=== PATIENT | female | born 1950 | race Caucasian/White ===

== ENCOUNTER 2017-05-29 05:46 | Inpatient (IN) | payer OTHER ==
[2017-05-29] MEDS ORDERED: METOPROLOL 5 MG INJ (07:00)
[2017-05-29] MEDS ORDERED: ROCURONIUM 50 MG INJ ×4 (07:34→17:53)
[2017-05-29] MEDS ORDERED: PROPOFOL 20 ML (07:34)
[2017-05-29] MEDS ORDERED: MIDAZOLAM 1 MG/ML 2 ML INJ (08:01)
[2017-05-29] MEDS ORDERED: ONDANSETRON 4 MG INJ (08:02)
[2017-05-29] MEDS ORDERED: PHENYLephrine (100 MCG/ML) 5ML SYG (08:02)
[2017-05-29] MEDS ORDERED: HYDROmorphONE 2 MG/ML SYG (08:33)
[2017-05-29] MEDS ORDERED: EPHEDrine SULFATE 50 MG/5 ML SYG (08:49)
[2017-05-29] MEDS ORDERED: DEXAMETHASONE 4 MG/ML 1 ML INJ (08:49)
[2017-05-29] MEDS ORDERED: ACETAMINOPHEN 1000MG/100ML IV 100 ML (08:49)
[2017-05-29] MEDS ORDERED: ROPIVACAINE 0.2% 20 ML VIAL (09:13)
[2017-05-29] MEDS: BUPIVACAINE 0.5%/EPI (SDV) 30 ML INJ (09:38)
[2017-05-29] MEDS ORDERED: NALOXONE (0.4 MG/ML) INJ IV ×2 (10:30→19:00)
[2017-05-29] MEDS ORDERED: PIPER-TAZO 3.375 GM IV (PMX) 100 ML (14:20)
[2017-05-29] MEDS ORDERED: MEPERIDINE 100 MG INJ (15:47)
[2017-05-29] MEDS ORDERED: ONDANSETRON 4 MG INJ IV ×2 (16:00→19:00)
[2017-05-29] MEDS ORDERED: MEPERIDINE 25 MG INJ IV (16:00)
[2017-05-29] MEDS ORDERED: LABETALOL HCL 20MG INJ IV ×2 (16:00→19:00)
[2017-05-29] MEDS ORDERED: HYDROmorphONE (0.2 MG/ML) 10ML SYG IV ×3 (16:00)
[2017-05-29] MEDS ORDERED: EPHEDrine SULFATE 50 MG/5 ML SYG IV (16:00)
[2017-05-29] MEDS ORDERED: DIPHENHYDRAMINE 50 MG INJ IV ×2 (16:00→19:00)
[2017-05-29] MEDS ORDERED: hydrALAzine 20 MG INJ IV ×2 (16:00→19:00)
[2017-05-29] MEDS ORDERED: FUROSEMIDE 20 MG INJ (16:47)
[2017-05-29] MEDS ORDERED: NEOSTIGMINE 3 MG/3 ML SYRINGE (17:53)
[2017-05-29] MEDS ORDERED: GLYCOPYRROLATE 0.4 MG INJ (17:53)
[2017-05-29] MEDS ORDERED: BISACODYL 10 MG SUPP PR (19:00)
[2017-05-29] MEDS ORDERED: METOCLOPRAMIDE 10 MG INJ IV (19:00)
[2017-05-29] MEDS ORDERED: HYDROmorphONE 0.5 MG/0.5 ML SYG IV ×5 (19:00)
[2017-05-29] MEDS ORDERED: HYDROCODONE/APAP (5/325) TAB PO ×2 (19:00)
[2017-05-29] MEDS ORDERED: HYDROmorphONE 1 MG/ML SYG IV ×3 (19:00)
[2017-05-29] MEDS ORDERED: NA PHOSPHATE/BIPHOS 133 ML ENEMA PR (19:00)
[2017-05-29] MEDS: PIPER-TAZO 3.375 GM IV (PMX) 100 ML IVPB (19:14)
[2017-05-29] MEDS: FENTAnyl 2MCG/ML-ROPIV 0.2% 100 ML BAG EPI (19:14)
[2017-05-29 20:18] LABS: ADD MAN DIFF? NO
[2017-05-29] MEDS: HYDROmorphONE 0.2 MG/ML PCA IV (20:29)
[2017-05-29 20:40] LABS: WHITE BLOOD COUNT 11.5 10^3/ul (4.8-10.8)
[2017-05-29 20:40] LABS: BASOPHILS % 0.2 % (0.0-2.0); HEMATOCRIT 34.1 % (37.0-47.0); HEMOGLOBIN 11.3 g/dl (12.0-16.0); LYMPHOCYTES # 0.7 10^3/ul (0.8-2.9); MEAN CORPUSCULAR HEMOGLOBIN 30.8 pg (29.0-33.0); MEAN CORPUSCULAR HGB CONC 33.1 g/dl (32.0-37.0); MEAN CORPUSCULAR VOLUME 92.9 fl (82.0-101.0); MEAN PLATELET VOLUME 9.1 fl (7.4-10.4); MONOCYTE # 0.6 10^3/ul (0.3-0.9); MONOCYTES % 5.1 % (0.0-11.0); NEUTROPHIL # 10.2 10^3/ul (1.6-7.5); NEUTROPHILS % 88.4 % (39.0-77.0); PLATELET COUNT 187 10^3/UL (140-415); RED BLOOD COUNT 3.67 10^6/ul (4.20-5.40); RED CELL DISTRIBUTION WIDTH 13.2 % (11.5-14.5)
[2017-05-29 20:43] LABS: ALANINE AMINOTRANSFERASE 65 IU/L (13-69); ALBUMIN 2.9 g/dl (3.3-4.9); ALBUMIN/GLOBULIN RATIO 0.93; ALKALINE PHOSPHATASE 67 IU/L (42-121); ANION GAP 10 (8-16); ASPARTATE AMINO TRANSFERASE 66 IU/L (15-46); BILIRUBIN,INDIRECT 0.3 mg/dl (0-1.1); BILIRUBIN,TOTAL 0.3 mg/dl (0.2-1.3); BLOOD UREA NITROGEN 22 mg/dl (7-20); CARBON DIOXIDE 23 mmol/L (21-31); CHLORIDE 111 mmol/L (97-110); CREATININE 1.74 mg/dl (0.44-1.00); GLUCOSE 212 mg/dl (70-220); MAGNESIUM 1.4 mg/dl (1.7-2.5); POTASSIUM 4.7 mmol/L (3.5-5.1); SODIUM 139 mmol/L (135-144)
[2017-05-29 20:43] LABS: PHOSPHORUS 4.3 mg/dl (2.5-4.9)
[2017-05-29] MEDS: D5W-0.45 NACL + KCL 20 MEQ 1,000 ML IV ×2 (20:44→21:39)
[2017-05-29 20:50] LABS: INR 1.02; PROTIME 13.5 Sec (11.9-14.9); PT RATIO 1.1
[2017-05-29 20:51] LABS: PARTIAL THROMBOPLASTIN TIME 32.1 Sec (25.0-35.0)
[2017-05-29] MEDS ORDERED: GLUCOSE GEL 15 GRAM TUBE BUCCAL (21:30)
[2017-05-29] MEDS ORDERED: DEXTROSE 50% 50 ML SYRINGE IV ×2 (21:30)
[2017-05-29] MEDS ORDERED: GLUCAGON 1 MG INJ IM (21:30)
[2017-05-29] MEDS ORDERED: GLUCOSE GEL 15 GRAM TUBE PO ×2 (21:30)
[2017-05-29] MEDS: MAGNESIUM SULFATE 2 GM/50 ML 50 ML IVPB (21:51)
[2017-05-29] MEDS: INSULIN ASPART [NOVOLOG] 3 ML PEN SC (23:11)
[2017-05-29] MEDS: ONDANSETRON 4 MG INJ IV (23:15)
[2017-05-30] MEDS: ACCU-CHEK XX ×6 (02:45→20:54)
[2017-05-30 04:17] LABS: ADD MAN DIFF? NO
[2017-05-30 04:23] LABS: BASOPHILS % 0.1 % (0.0-2.0); HEMATOCRIT 33.8 % (37.0-47.0); HEMOGLOBIN 10.8 g/dl (12.0-16.0); LYMPHOCYTES # 0.7 10^3/ul (0.8-2.9); LYMPHOCYTES % 6.7 % (15.0-51.0); MEAN CORPUSCULAR HEMOGLOBIN 29.9 pg (29.0-33.0); MEAN CORPUSCULAR VOLUME 93.6 fl (82.0-101.0); MEAN PLATELET VOLUME 9.2 fl (7.4-10.4); MONOCYTE # 0.6 10^3/ul (0.3-0.9); MONOCYTES % 5.2 % (0.0-11.0); NEUTROPHIL # 9.7 10^3/ul (1.6-7.5); NEUTROPHILS % 87.7 % (39.0-77.0); PLATELET COUNT 190 10^3/UL (140-415); RED BLOOD COUNT 3.61 10^6/ul (4.20-5.40); RED CELL DISTRIBUTION WIDTH 13.2 % (11.5-14.5)
[2017-05-30 04:58] LABS: IRON < 10 ug/dl (35-150)
[2017-05-30 05:01] LABS: ALANINE AMINOTRANSFERASE 56 IU/L (13-69); ALBUMIN 2.8 g/dl (3.3-4.9); ALBUMIN/GLOBULIN RATIO 0.93; ALKALINE PHOSPHATASE 61 IU/L (42-121); ANION GAP 15 (8-16); ASPARTATE AMINO TRANSFERASE 53 IU/L (15-46); BILIRUBIN,INDIRECT 0.1 mg/dl (0-1.1); BILIRUBIN,TOTAL 0.1 mg/dl (0.2-1.3); BLOOD UREA NITROGEN 23 mg/dl (7-20); CALCIUM 9.3 mg/dl (8.4-10.2); CARBON DIOXIDE 20 mmol/L (21-31); CHLORIDE 111 mmol/L (97-110); CREATININE 1.94 mg/dl (0.44-1.00); GLUCOSE 209 mg/dl (70-220); POTASSIUM 4.8 mmol/L (3.5-5.1); SODIUM 141 mmol/L (135-144); TOTAL PROTEIN 5.8 g/dl (6.1-8.1)
[2017-05-30 05:03] LABS: LIPASE < 10 U/L (23-300)
[2017-05-30 05:05] LABS: B-TYPE NATRIURETIC PEPTIDE 504 PG/ML (0-125); TOTAL IRON BINDING CAPACITY 211 ug/dl (241-421)
[2017-05-30] MEDS: D5W-0.45 NACL + KCL 20 MEQ 1,000 ML IV ×3 (05:09→18:19)
[2017-05-30] MEDS: PANTOPRAZOLE 40 MG INJ IV (05:09)
[2017-05-30 05:11] LABS: INR 1.14; PARTIAL THROMBOPLASTIN TIME 37.8 Sec (25.0-35.0); PROTIME 14.8 Sec (11.9-14.9); PT RATIO 1.2
[2017-05-30] MEDS: INSULIN ASPART [NOVOLOG] 3 ML PEN SC ×5 (05:13→20:52)
[2017-05-30 05:14] LABS: LACTIC ACID 2.3 mmol/L (0.5-2.0)
[2017-05-30 05:32] LABS: FERRITIN 75.5 ng/ml (11.1-264.0)
[2017-05-30 05:37] LABS: MAGNESIUM 2.1 mg/dl (1.7-2.5); PHOSPHORUS 3.7 mg/dl (2.5-4.9)
[2017-05-30 05:37] LABS: CALCIUM 9.2 mg/dl (8.4-10.2)
[2017-05-30] MEDS: SOD CHLORIDE 0.9% 500 ML IV (05:40)
[2017-05-30] MEDS: ENOXAPARIN 40 MG/0.4 ML SYG SC (08:35)
[2017-05-30] MEDS: FENTAnyl 2MCG/ML-ROPIV 0.2% 100 ML BAG EPI ×3 (08:43→21:47)
[2017-05-30 09:43] LABS: LACTIC ACID 1.3 mmol/L (0.5-2.0)
[2017-05-30] MEDS: FERROUS SULFATE (EC) 325 MG TAB PO (20:47)
[2017-05-30] MEDS: NA BICARBONATE 650 MG TAB PO (20:48)
[2017-05-30] MEDS: METOPROLOL 25 MG TAB PO (20:48)
[2017-05-30] MEDS: HEPARIN 5,000 UNIT/0.5 ML VIAL SC (20:49)
[2017-05-31] MEDS: INSULIN ASPART [NOVOLOG] 3 ML PEN SC ×6 (01:00→21:00)
[2017-05-31] MEDS: ACCU-CHEK XX ×6 (01:12→21:00)
[2017-05-31] MEDS: FENTAnyl 2MCG/ML-ROPIV 0.2% 100 ML BAG EPI ×2 (04:54→12:36)
[2017-05-31] MEDS: PANTOPRAZOLE 40 MG INJ IV (05:16)
[2017-05-31] MEDS: D5W-0.45 NACL + KCL 20 MEQ 1,000 ML IV ×2 (05:16→15:08)
[2017-05-31 06:24] LABS: ANION GAP 10 (8-16); BLOOD UREA NITROGEN 21 mg/dl (7-20); CALCIUM 9.5 mg/dl (8.4-10.2); CARBON DIOXIDE 22 mmol/L (21-31); CHLORIDE 112 mmol/L (97-110); CREATININE 1.65 mg/dl (0.44-1.00); GLUCOSE 118 mg/dl (70-220); MAGNESIUM 1.8 mg/dl (1.7-2.5); PHOSPHORUS 2.7 mg/dl (2.5-4.9); SODIUM 139 mmol/L (135-144)
[2017-05-31] MEDS: HEPARIN 5,000 UNIT/0.5 ML VIAL SC ×2 (08:29→21:27)
[2017-05-31] MEDS: ASPIRIN (EC) 81 MG TAB PO (08:30)
[2017-05-31] MEDS: LOSARTAN 50 MG TAB PO (08:30)
[2017-05-31] MEDS: FUROSEMIDE 40 MG TAB PO (08:31)
[2017-05-31] MEDS: METOPROLOL 25 MG TAB PO ×2 (08:31→21:23)
[2017-05-31] MEDS: CYANOCOBALAMIN 500 MCG TAB PO (08:31)
[2017-05-31] MEDS: FERROUS SULFATE (EC) 325 MG TAB PO ×2 (08:32→21:23)
[2017-05-31] MEDS: NA BICARBONATE 650 MG TAB PO ×2 (08:32→21:23)
[2017-05-31] MEDS: CHOLECALCIFEROL 2,000 UNIT CAP PO (08:32)
[2017-05-31] MEDS: FEBUXOSTAT 40 MG TABLET PO (08:32)
[2017-05-31] MEDS ORDERED: NON-FORMULARY/PATIENT OWN MED (Ubidecarenone (Coq10) 50 MG) PO (09:00)
[2017-05-31] MEDS: FUROSEMIDE 20 MG INJ IV ×2 (12:19→17:18)
[2017-05-31] MEDS: HYDROmorphONE 0.2 MG/ML PCA IV (15:13)
[2017-06-01] MEDS: ACCU-CHEK XX ×3 (01:00→09:00)
[2017-06-01] MEDS: INSULIN ASPART [NOVOLOG] 3 ML PEN SC ×6 (01:00→20:41)
[2017-06-01] MEDS: FENTAnyl 2MCG/ML-ROPIV 0.2% 100 ML BAG EPI ×3 (03:29→18:05)
[2017-06-01] MEDS: D5W-0.45 NACL + KCL 20 MEQ 1,000 ML IV ×3 (03:36→23:36)
[2017-06-01 04:58] LABS: ADD MAN DIFF? NO
[2017-06-01 05:06] LABS: WHITE BLOOD COUNT 6.9 10^3/ul (4.8-10.8)
[2017-06-01 05:06] LABS: BASOPHILS % 0.4 % (0.0-2.0); EOSINOPHILS # 0.1 10^3/ul (0.0-0.5); HEMATOCRIT 27.5 % (37.0-47.0); HEMOGLOBIN 9.3 g/dl (12.0-16.0); LYMPHOCYTES # 1.2 10^3/ul (0.8-2.9); LYMPHOCYTES % 16.9 % (15.0-51.0); MEAN CORPUSCULAR HEMOGLOBIN 31.7 pg (29.0-33.0); MEAN CORPUSCULAR HGB CONC 33.8 g/dl (32.0-37.0); MEAN CORPUSCULAR VOLUME 93.9 fl (82.0-101.0); MEAN PLATELET VOLUME 9.3 fl (7.4-10.4); MONOCYTE # 0.5 10^3/ul (0.3-0.9); MONOCYTES % 6.8 % (0.0-11.0); NEUTROPHIL # 5.1 10^3/ul (1.6-7.5); NEUTROPHILS % 73.5 % (39.0-77.0); PLATELET COUNT 171 10^3/UL (140-415); RED BLOOD COUNT 2.93 10^6/ul (4.20-5.40); RED CELL DISTRIBUTION WIDTH 13.5 % (11.5-14.5)
[2017-06-01 05:18] LABS: INR 0.96; PROTIME 12.9 Sec (11.9-14.9)
[2017-06-01] MEDS: PANTOPRAZOLE 40 MG INJ IV (05:55)
[2017-06-01 07:58] LABS: ALANINE AMINOTRANSFERASE 52 IU/L (13-69); ALBUMIN 2.7 g/dl (3.3-4.9); ALBUMIN/GLOBULIN RATIO 1.03; ALKALINE PHOSPHATASE 53 IU/L (42-121); ANION GAP 10 (8-16); ASPARTATE AMINO TRANSFERASE 32 IU/L (15-46); BILIRUBIN,INDIRECT 0.2 mg/dl (0-1.1); BILIRUBIN,TOTAL 0.2 mg/dl (0.2-1.3); BLOOD UREA NITROGEN 19 mg/dl (7-20); CALCIUM 9.5 mg/dl (8.4-10.2); CARBON DIOXIDE 24 mmol/L (21-31); CHLORIDE 106 mmol/L (97-110); CREATININE 1.59 mg/dl (0.44-1.00); GLUCOSE 120 mg/dl (70-220); MAGNESIUM 1.6 mg/dl (1.7-2.5); PHOSPHORUS 2.7 mg/dl (2.5-4.9); POTASSIUM 4.4 mmol/L (3.5-5.1); SODIUM 136 mmol/L (135-144); TOTAL PROTEIN 5.3 g/dl (6.1-8.1)
[2017-06-01 08:06] LABS: B-TYPE NATRIURETIC PEPTIDE 641 PG/ML (0-125)
[2017-06-01] MEDS: NA BICARBONATE 650 MG TAB PO ×2 (08:52→20:31)
[2017-06-01] MEDS: ASPIRIN (EC) 81 MG TAB PO (08:52)
[2017-06-01] MEDS: METOPROLOL 25 MG TAB PO ×2 (08:52→20:30)
[2017-06-01] MEDS: FERROUS SULFATE (EC) 325 MG TAB PO ×2 (08:53→20:29)
[2017-06-01] MEDS: FUROSEMIDE 40 MG TAB PO (08:53)
[2017-06-01] MEDS: CYANOCOBALAMIN 500 MCG TAB PO (08:53)
[2017-06-01] MEDS: CHOLECALCIFEROL 2,000 UNIT CAP PO (08:56)
[2017-06-01] MEDS: LOSARTAN 50 MG TAB PO (09:07)
[2017-06-01] MEDS: FEBUXOSTAT 40 MG TABLET PO (09:07)
[2017-06-01] MEDS: HEPARIN 5,000 UNIT/0.5 ML VIAL SC ×2 (09:09→20:41)
[2017-06-01] MEDS: MAGNESIUM SULFATE 2 GM/50 ML 50 ML IVPB (09:49)
[2017-06-01] MEDS: FUROSEMIDE 20 MG INJ IV ×3 (12:29→23:38)
[2017-06-02] MEDS: ACCUCHECK AT 2AM (Patients on SS coverage) XX (02:00)
[2017-06-02] MEDS: FENTAnyl 2MCG/ML-ROPIV 0.2% 100 ML BAG EPI ×3 (02:11→18:02)
[2017-06-02] MEDS: D5W-0.45 NACL + KCL 20 MEQ 1,000 ML IV ×2 (02:43→10:13)
[2017-06-02 05:47] LABS: ADD MAN DIFF? NO
[2017-06-02 05:51] LABS: WHITE BLOOD COUNT 5.7 10^3/ul (4.8-10.8)
[2017-06-02 05:51] LABS: ABNORMAL IP MESSAGE 1; BASOPHILS % 0.7 % (0.0-2.0); EOSINOPHILS # 0.4 10^3/ul (0.0-0.5); EOSINOPHILS % 7.5 % (0.0-7.0); HEMATOCRIT 29.7 % (37.0-47.0); HEMOGLOBIN 9.9 g/dl (12.0-16.0); LYMPHOCYTES # 1.4 10^3/ul (0.8-2.9); LYMPHOCYTES % 24.9 % (15.0-51.0); MEAN CORPUSCULAR HEMOGLOBIN 30.7 pg (29.0-33.0); MEAN CORPUSCULAR HGB CONC 33.3 g/dl (32.0-37.0); MEAN PLATELET VOLUME 9.4 fl (7.4-10.4); MONOCYTE # 0.5 10^3/ul (0.3-0.9); MONOCYTES % 7.8 % (0.0-11.0); NEUTROPHIL # 3.4 10^3/ul (1.6-7.5); NEUTROPHILS % 58.4 % (39.0-77.0); PLATELET COUNT 214 10^3/UL (140-415); RED BLOOD COUNT 3.23 10^6/ul (4.20-5.40); RED CELL DISTRIBUTION WIDTH 13.2 % (11.5-14.5)
[2017-06-02 05:58] LABS: POSITIVE DIFF @See below
[2017-06-02] MEDS: PANTOPRAZOLE 40 MG INJ IV (06:04)
[2017-06-02 06:19] LABS: INR 0.93; PROTIME 12.6 Sec (11.9-14.9)
[2017-06-02 06:20] LABS: PARTIAL THROMBOPLASTIN TIME 32.5 Sec (25.0-35.0)
[2017-06-02 06:26] LABS: ALANINE AMINOTRANSFERASE 49 IU/L (13-69); ALBUMIN 3.2 g/dl (3.3-4.9); ALKALINE PHOSPHATASE 69 IU/L (42-121); ANION GAP 14 (8-16); ASPARTATE AMINO TRANSFERASE 31 IU/L (15-46); BILIRUBIN,INDIRECT 0.2 mg/dl (0-1.1); BILIRUBIN,TOTAL 0.2 mg/dl (0.2-1.3); BLOOD UREA NITROGEN 16 mg/dl (7-20); CALCIUM 9.9 mg/dl (8.4-10.2); CARBON DIOXIDE 27 mmol/L (21-31); CHLORIDE 100 mmol/L (97-110); CREATININE 1.64 mg/dl (0.44-1.00); GLUCOSE 110 mg/dl (70-220); MAGNESIUM 1.8 mg/dl (1.7-2.5); PHOSPHORUS 3.3 mg/dl (2.5-4.9); POTASSIUM 4.1 mmol/L (3.5-5.1); SODIUM 137 mmol/L (135-144); TOTAL PROTEIN 6.1 g/dl (6.1-8.1)
[2017-06-02 06:30] LABS: B-TYPE NATRIURETIC PEPTIDE 891 PG/ML (0-125)
[2017-06-02] MEDS: INSULIN ASPART [NOVOLOG] 3 ML PEN SC ×4 (08:56→21:00)
[2017-06-02] MEDS: LOSARTAN 50 MG TAB PO (08:57)
[2017-06-02] MEDS: FERROUS SULFATE (EC) 325 MG TAB PO ×2 (08:57→21:43)
[2017-06-02] MEDS: FEBUXOSTAT 40 MG TABLET PO (08:57)
[2017-06-02] MEDS: CHOLECALCIFEROL 2,000 UNIT CAP PO (08:57)
[2017-06-02] MEDS: ASPIRIN (EC) 81 MG TAB PO (08:57)
[2017-06-02] MEDS: METOPROLOL 25 MG TAB PO ×2 (08:57→21:43)
[2017-06-02] MEDS: NA BICARBONATE 650 MG TAB PO ×2 (08:58→21:44)
[2017-06-02] MEDS: CYANOCOBALAMIN 500 MCG TAB PO (09:04)
[2017-06-02] MEDS: HEPARIN 5,000 UNIT/0.5 ML VIAL SC ×2 (09:34→21:48)
[2017-06-03] MEDS: FENTAnyl 2MCG/ML-ROPIV 0.2% 100 ML BAG EPI (01:29)
[2017-06-03] MEDS: ACCUCHECK AT 2AM (Patients on SS coverage) XX (02:00)
[2017-06-03] MEDS: PANTOPRAZOLE 40 MG INJ IV (04:25)
[2017-06-03 05:23] LABS: ABNORMAL IP MESSAGE 1; HEMATOCRIT 27.5 % (37.0-47.0); HEMOGLOBIN 9.2 g/dl (12.0-16.0); MEAN CORPUSCULAR HEMOGLOBIN 30.8 pg (29.0-33.0); MEAN CORPUSCULAR HGB CONC 33.5 g/dl (32.0-37.0); MEAN PLATELET VOLUME 9.1 fl (7.4-10.4); PLATELET COUNT 225 10^3/UL (140-415); RED BLOOD COUNT 2.99 10^6/ul (4.20-5.40); RED CELL DISTRIBUTION WIDTH 13.1 % (11.5-14.5)
[2017-06-03 05:36] LABS: ADD MAN DIFF? YES; POSITIVE DIFF @See below
[2017-06-03 05:38] LABS: ALANINE AMINOTRANSFERASE 45 IU/L (13-69); ALBUMIN 3.1 g/dl (3.3-4.9); ALBUMIN/GLOBULIN RATIO 1.14; ALKALINE PHOSPHATASE 69 IU/L (42-121); ASPARTATE AMINO TRANSFERASE 26 IU/L (15-46); BILIRUBIN,INDIRECT 0.1 mg/dl (0-1.1); BILIRUBIN,TOTAL 0.1 mg/dl (0.2-1.3); BLOOD UREA NITROGEN 14 mg/dl (7-20); CALCIUM 9.7 mg/dl (8.4-10.2); CARBON DIOXIDE 26 mmol/L (21-31); CHLORIDE 103 mmol/L (97-110); CREATININE 1.67 mg/dl (0.44-1.00); GLUCOSE 96 mg/dl (70-220); MAGNESIUM 1.7 mg/dl (1.7-2.5); PHOSPHORUS 3.7 mg/dl (2.5-4.9); SODIUM 136 mmol/L (135-144); TOTAL PROTEIN 5.8 g/dl (6.1-8.1)
[2017-06-03 05:45] LABS: B-TYPE NATRIURETIC PEPTIDE 659 PG/ML (0-125)
[2017-06-03 06:12] LABS: INR 0.99; PARTIAL THROMBOPLASTIN TIME 30.4 Sec (25.0-35.0); PROTIME 13.2 Sec (11.9-14.9)
[2017-06-03 07:42] LABS: ANION GAP 11 (8-16)
[2017-06-03 08:21] LABS: EOSINOPHILS % (M) 3 % (0-7); GIANT THROMBO% (M) 1 % (0-0); LYMPHOCYTES #M 1.4 10^3/ul (0.8-2.9); LYMPHOCYTES % (M) 28 % (15-51); MONOCYTE #M 0.6 10^3/ul (0.3-0.9); MONOCYTES % (M) 12 % (0-11); OVALOCYTES 1+ (0-0); PLATELET ESTIMATE NORMAL; POIKILOCYTOSIS 1+ (0-0); POLYCHROMASIA 1+ (0-0); REACTIVE LYMPHOCYTES% (M) 1 % (0-0); SEGMENTED NEUTROPHILS (M) % 56 % (39-77); SMUDGE%M 4 % (0-0)
[2017-06-03] MEDS: INSULIN ASPART [NOVOLOG] 3 ML PEN SC ×4 (09:13→20:30)
[2017-06-03] MEDS: FERROUS SULFATE (EC) 325 MG TAB PO ×2 (09:21→20:22)
[2017-06-03] MEDS: ASPIRIN (EC) 81 MG TAB PO (09:21)
[2017-06-03] MEDS: LOSARTAN 50 MG TAB PO (09:21)
[2017-06-03] MEDS: METOPROLOL 25 MG TAB PO ×2 (09:22→20:22)
[2017-06-03] MEDS: NA BICARBONATE 650 MG TAB PO ×2 (09:23→20:21)
[2017-06-03] MEDS: CYANOCOBALAMIN 500 MCG TAB PO (09:23)
[2017-06-03] MEDS: FEBUXOSTAT 40 MG TABLET PO (09:23)
[2017-06-03] MEDS: CHOLECALCIFEROL 2,000 UNIT CAP PO (09:23)
[2017-06-03] MEDS: HEPARIN 5,000 UNIT/0.5 ML VIAL SC ×2 (09:34→20:32)
[2017-06-03] MEDS: DOCUSATE SODIUM 100 MG CAP PO (15:11)
[2017-06-03] MEDS: MAGNESIUM OXIDE 400 MG TAB PO (15:11)
[2017-06-03] MEDS: traMADol 50 MG TAB PO ×2 (15:12→22:25)
[2017-06-03] MEDS: hydrALAzine 20 MG INJ IV (20:23)
[2017-06-04] MEDS: ACCUCHECK AT 2AM (Patients on SS coverage) XX (02:00)
[2017-06-04] MEDS: hydrALAzine 20 MG INJ IV (02:16)
[2017-06-04] MEDS: traMADol 50 MG TAB PO (02:24)
[2017-06-04] MEDS: PANTOPRAZOLE 40 MG INJ IV (05:46)
[2017-06-04] MEDS: FEBUXOSTAT 40 MG TABLET PO (08:41)
[2017-06-04] MEDS: CYANOCOBALAMIN 500 MCG TAB PO (08:41)
[2017-06-04] MEDS: CHOLECALCIFEROL 2,000 UNIT CAP PO (08:42)
[2017-06-04] MEDS: NA BICARBONATE 650 MG TAB PO (08:42)
[2017-06-04] MEDS: LOSARTAN 50 MG TAB PO (08:42)
[2017-06-04] MEDS: FERROUS SULFATE (EC) 325 MG TAB PO (08:42)
[2017-06-04] MEDS: ASPIRIN (EC) 81 MG TAB PO (08:42)
[2017-06-04] MEDS: METOPROLOL 25 MG TAB PO (08:43)
[2017-06-04] MEDS: INSULIN ASPART [NOVOLOG] 3 ML PEN SC ×3 (09:11→17:55)
[2017-06-04] MEDS: HEPARIN 5,000 UNIT/0.5 ML VIAL SC (09:11)
== END 2017-06-04 20:55 | disposition home or self-care (01) | DRG 405 ==
LOC: REC 05:46 → MS1 06-01 15:55 → ICU 18:56
PROC: 0FBG0ZZ Excision of Pancreas, Open Approach (ICD-10-PCS; principal; 2017-05-29 07:30)
PROC: 0DB90ZZ Excision of Duodenum, Open Approach (ICD-10-PCS; 2017-05-29 07:30)
PROC: 0FB04ZX Excision of Liver, Percutaneous Endoscopic Approach, Diagnostic (ICD-10-PCS; 2017-05-29 07:30)
PROC: 0F9G0ZX Drainage of Pancreas, Open Approach, Diagnostic (ICD-10-PCS; 2017-05-29 07:30)
PROC: 04B Lower Arteries, Excision (ICD-10-PCS; 2017-05-29 07:30)
PROC: 0DBW4ZX Excision of Peritoneum, Percutaneous Endoscopic Approach, Diagnostic (ICD-10-PCS; 2017-05-29 07:30)
DX: C25.0 Malignant neoplasm of head of pancreas (principal); K83.1 Obstruction of bile duct; E46 Unspecified protein-calorie malnutrition; C78.6 Secondary malignant neoplasm of retroperitoneum and peritoneum; L97.919 Non-pressure chronic ulcer of unspecified part of right lower leg with unspecified severity; K86.1 Other chronic pancreatitis; E83.42 Hypomagnesemia; I83.019 Varicose veins of right lower extremity with ulcer of unspecified site; F10.10 Alcohol abuse, uncomplicated; D13.6 Benign neoplasm of pancreas; E66.9 Obesity, unspecified; I12.9 Hypertensive chronic kidney disease with stage 1 through stage 4 chronic kidney disease, or unspecified chronic kidney disease; N18.9 Chronic kidney disease, unspecified; K80.20 Calculus of gallbladder without cholecystitis without obstruction; Z68.32 Body mass index [BMI] 32.0-32.9, adult; E78.5 Hyperlipidemia, unspecified; M19.90 Unspecified osteoarthritis, unspecified site; I45.10 Unspecified right bundle-branch block; K86.89 Other specified diseases of pancreas; D50.9 Iron deficiency anemia, unspecified; Z53.31 Laparoscopic surgical procedure converted to open procedure
CPT/HCPCS: 71045; 80048; 80053; 82310; 82728; 82962; 83540; 83605; 83690; 83735; 83880; 84100; 85025; 85610; 85730; 86850; 86900; 86901; 87081; 88104; 88304; 88307; 93306; 97110; 97116; 97162; 97530; J1940

== ENCOUNTER 2017-06-13 15:19 | Outpatient (CLI) | payer OTHER | END 2017-06-13 17:00 | disposition home or self-care (01) | LOC: HPC 15:19 | DX: D05.10 Intraductal carcinoma in situ of unspecified breast (principal); D49.0 Neoplasm of unspecified behavior of digestive system | CPT/HCPCS: G0463 ==

== ENCOUNTER 2017-08-01 09:44 | Outpatient (CLI) | payer OTHER | END 2017-08-01 17:02 | disposition home or self-care (01) | LOC: HPC 09:44 | DX: C25.9 Malignant neoplasm of pancreas, unspecified (principal) | CPT/HCPCS: G0463 ==

== ENCOUNTER 2017-08-27 14:12 | Inpatient (IN) | payer OTHER ==
[2017-08-27] MEDS ORDERED: APIXABAN 5 MG TABLET PO (18:00)
[2017-08-27 18:30] LABS: WHITE BLOOD COUNT 2.1 10^3/ul (4.8-10.8)
[2017-08-27 18:30] LABS: ABNORMAL IP MESSAGE 1; MEAN CORPUSCULAR HEMOGLOBIN 31.5 pg (29.0-33.0); MEAN CORPUSCULAR HGB CONC 33.5 g/dl (32.0-37.0); MEAN CORPUSCULAR VOLUME 93.9 fl (82.0-101.0); MEAN PLATELET VOLUME 10.4 fl (7.4-10.4); PLATELET COUNT 61 10^3/UL (140-415); RED BLOOD COUNT 2.13 10^6/ul (4.20-5.40); RED CELL DISTRIBUTION WIDTH 14.1 % (11.5-14.5)
[2017-08-27] MEDS ORDERED: ACETAMINOPHEN 325 MG TAB PO (18:30)
[2017-08-27] MEDS ORDERED: ONDANSETRON 4 MG INJ IV (18:30)
[2017-08-27] MEDS ORDERED: morphine 2 MG INJ IV (18:30)
[2017-08-27] MEDS ORDERED: DOCUSATE SODIUM 100 MG CAP PO (18:30)
[2017-08-27] MEDS ORDERED: HYDROCODONE/APAP (5/325) TAB PO (18:30)
[2017-08-27] MEDS ORDERED: NITROGLYCERIN (SL) 0.4 MG TAB SL (18:30)
[2017-08-27] MEDS ORDERED: LORAZEPAM 0.5 MG TAB PO (18:30)
[2017-08-27] MEDS ORDERED: MAGNESIUM HYDROXIDE 30ML CUP PO (18:30)
[2017-08-27] MEDS ORDERED: BISACODYL (EC) 5 MG TAB PO (18:30)
[2017-08-27 18:49] LABS: ADD MAN DIFF? YES; HEMOGLOBIN 6.7 g/dl (12.0-16.0); POSITIVE DIFF @See below
[2017-08-27] MEDS ORDERED: hydrALAzine 20 MG INJ IV (19:00)
[2017-08-27 19:05] LABS: ALANINE AMINOTRANSFERASE 41 IU/L (13-69); ALBUMIN 2.2 g/dl (3.3-4.9); ALBUMIN/GLOBULIN RATIO 0.81; ALKALINE PHOSPHATASE 119 IU/L (42-121); ANION GAP 9 (8-16); ASPARTATE AMINO TRANSFERASE 53 IU/L (15-46); BILIRUBIN,INDIRECT 0.5 mg/dl (0-1.1); BILIRUBIN,TOTAL 0.5 mg/dl (0.2-1.3); BLOOD UREA NITROGEN 17 mg/dl (7-20); CALCIUM 8.3 mg/dl (8.4-10.2); CARBON DIOXIDE 28 mmol/L (21-31); CHLORIDE 106 mmol/L (97-110); CREATININE 1.39 mg/dl (0.44-1.00); GLUCOSE 103 mg/dl (70-220); POTASSIUM 3.8 mmol/L (3.5-5.1); SODIUM 139 mmol/L (135-144); TOTAL PROTEIN 4.9 g/dl (6.1-8.1)
[2017-08-27 19:07] LABS: LIPASE < 10 U/L (23-300)
[2017-08-27 19:07] LABS: AMMONIA < 9 umol/l (9-30)
[2017-08-27 19:14] LABS: TROPONIN-I < 0.012 ng/ml (0.00-0.12)
[2017-08-27 19:23] LABS: INR 1.07; PT RATIO 1.1
[2017-08-27 19:24] LABS: PARTIAL THROMBOPLASTIN TIME 38.6 Sec (25.0-35.0)
[2017-08-27 20:24] LABS: ANISOCYTOSIS 1+ (0-0); GIANT THROMBO% (M) 3 % (0-0); HYPOCHROMASIA 2+ (0-0); LYMPHOCYTES #M 0.8 10^3/ul (0.8-2.9); LYMPHOCYTES % (M) 42 % (15-51); MONOCYTES % (M) 2 % (0-11); OVALOCYTES 1+ (0-0); PLATELET ESTIMATE SIG DECREASED; POIKILOCYTOSIS 1+ (0-0); POLYCHROMASIA 3+ (0-0); SEGMENTED NEUTROPHILS (M) % 56 % (39-77); SMUDGE%M 9 % (0-0)
[2017-08-27] MEDS: APIXABAN 5 MG TABLET PO (21:01)
[2017-08-27] MEDS: METOPROLOL 25 MG TAB PO (21:01)
[2017-08-27] MEDS: NA BICARBONATE 650 MG TAB PO (21:02)
[2017-08-27] MEDS: PANTOPRAZOLE (EC) 40 MG TAB PO (21:10)
[2017-08-27] MEDS: NACL 0.9% 3 ML SYG IV (21:11)
[2017-08-28 00:12] LABS: IMMEDIATE SPIN CROSSMATCH 1 2
[2017-08-28 06:45] LABS: ADD UMIC YES; UR ASCORBIC ACID 40 mg/dL (NEGATIVE); UR BACTERIA FEW /HPF (NONE SEEN); UR BILIRUBIN (Dip) NEGATIVE (NEGATIVE); UR BLOOD (Dip) NEGATIVE (NEGATIVE); UR CLARITY CLEAR (CLEAR); UR COLOR YELLOW (YELLOW); UR GLUCOSE (Dip) NEGATIVE (NEGATIVE); UR KETONES (Dip) NEGATIVE (NEGATIVE); UR LEUKOCYTE ESTERASE (Dip) 3+ Leu/ul (NEGATIVE); UR NITRITE (Dip) NEGATIVE (NEGATIVE); UR RBC 0 /HPF (0-5); UR SPECIFIC GRAVITY (Dip) 1.017 (1.003-1.030); UR SQUAMOUS EPITHELIAL CELL FEW /HPF (FEW); UR TOTAL PROTEIN (Dip) NEGATIVE (NEGATIVE); UR UROBILINOGEN (Dip) NEGATIVE (NEGATIVE); UR WBC 7 /HPF (0-5)
[2017-08-28 07:18] LABS: ABNORMAL IP MESSAGE 1; HEMATOCRIT 22.5 % (37.0-47.0); HEMOGLOBIN 7.5 g/dl (12.0-16.0); MEAN CORPUSCULAR HEMOGLOBIN 30.6 pg (29.0-33.0); MEAN CORPUSCULAR HGB CONC 33.3 g/dl (32.0-37.0); MEAN CORPUSCULAR VOLUME 91.8 fl (82.0-101.0); MEAN PLATELET VOLUME 11.1 fl (7.4-10.4); PLATELET COUNT 46 10^3/UL (140-415); RED BLOOD COUNT 2.45 10^6/ul (4.20-5.40); RED CELL DISTRIBUTION WIDTH 14.3 % (11.5-14.5)
[2017-08-28 07:18] LABS: WHITE BLOOD COUNT 1.7 10^3/ul (4.8-10.8)
[2017-08-28 07:27] LABS: ADD MAN DIFF? YES; POSITIVE DIFF @See below
[2017-08-28 07:34] LABS: ALANINE AMINOTRANSFERASE 42 IU/L (13-69); ALBUMIN 1.8 g/dl (3.3-4.9); ALBUMIN/GLOBULIN RATIO 0.78; ALKALINE PHOSPHATASE 91 IU/L (42-121); ANION GAP 5 (8-16); ASPARTATE AMINO TRANSFERASE 37 IU/L (15-46); BILIRUBIN,INDIRECT 1.1 mg/dl (0-1.1); BILIRUBIN,TOTAL 1.1 mg/dl (0.2-1.3); BLOOD UREA NITROGEN 15 mg/dl (7-20); CALCIUM 8.1 mg/dl (8.4-10.2); CARBON DIOXIDE 29 mmol/L (21-31); CHLORIDE 110 mmol/L (97-110); CREATININE 1.32 mg/dl (0.44-1.00); GLUCOSE 99 mg/dl (70-220); MAGNESIUM 1.7 mg/dl (1.7-2.5); SODIUM 140 mmol/L (135-144); TOTAL PROTEIN 4.1 g/dl (6.1-8.1)
[2017-08-28] MEDS: NA BICARBONATE 650 MG TAB PO ×2 (09:22→20:29)
[2017-08-28] MEDS: CHOLECALCIFEROL 1,000 UNIT TAB PO (09:22)
[2017-08-28] MEDS: CYANOCOBALAMIN 500 MCG TAB PO (09:22)
[2017-08-28] MEDS: FEBUXOSTAT 40 MG TABLET PO (09:22)
[2017-08-28] MEDS: PANTOPRAZOLE (EC) 40 MG TAB PO (09:22)
[2017-08-28] MEDS: METOPROLOL 25 MG TAB PO ×2 (09:23→20:29)
[2017-08-28] MEDS: FUROSEMIDE 20 MG TAB PO ×2 (09:28→20:30)
[2017-08-28 10:21] LABS: ANISOCYTOSIS 1+ (0-0); BAND NEUTROPHILS % (M) 1 % (0-4); ERYTHROBLAST% (NRBC) (M) 1 % (0-0); GIANT THROMBO% (M) 4 % (0-0); LYMPHOCYTES #M 0.9 10^3/ul (0.8-2.9); LYMPHOCYTES % (M) 56 % (15-51); MICROCYTOSIS 1+ (0-0); MONOCYTES % (M) 1 % (0-11); PLATELET ESTIMATE SIG DECREASED; POIKILOCYTOSIS 1+ (0-0); SEG NEUT #M 0.7 10^3/ul (1.6-7.5); SEGMENTED NEUTROPHILS (M) % 42 % (39-77); SMUDGE%M 14 % (0-0)
[2017-08-28 12:57] LABS: TYPE AND SCREEN 1
[2017-08-28] MEDS: SOD CHLORIDE 0.9% 500 ML (15:35)
[2017-08-28] MEDS: FENTAnyl 50 MCG/ML VIAL (15:50)
[2017-08-28] MEDS: CEFAZOLIN 1 GM/50 ML (PMX) 50 ML IVPB ×2 (15:50→16:00)
[2017-08-28] MEDS: MIDAZOLAM 1 MG/ML 2 ML INJ (15:53)
[2017-08-28] MEDS: LIDOCAINE 1%/EPI 30 ML INJ (16:00)
[2017-08-28] MEDS: HEPARIN 1000 UNITS/ML 10 ML INJ (16:00)
[2017-08-28] MEDS: POLYMYXIN/BACITRACIN 1L IRRIG IRR (16:10)
[2017-08-28] MEDS: SOD CHLORIDE 0.9% 1,000 ML IV (17:13)
[2017-08-28] MEDS: APIXABAN 5 MG TABLET PO ×2 (17:13→20:30)
[2017-08-28] MEDS: ASPIRIN (EC) 81 MG TAB PO (17:14)
[2017-08-28] MEDS: traMADol 50 MG TAB PO (22:09)
[2017-08-29] MEDS: traMADol 50 MG TAB PO ×3 (02:31→14:24)
[2017-08-29] MEDS: FUROSEMIDE 20 MG TAB PO ×2 (05:45→18:18)
[2017-08-29 08:11] LABS: ABNORMAL IP MESSAGE 1; HEMATOCRIT 22.7 % (37.0-47.0); HEMOGLOBIN 7.6 g/dl (12.0-16.0); MEAN CORPUSCULAR HEMOGLOBIN 30.9 pg (29.0-33.0); MEAN CORPUSCULAR HGB CONC 33.5 g/dl (32.0-37.0); MEAN CORPUSCULAR VOLUME 92.3 fl (82.0-101.0); PLATELET COUNT 57 10^3/UL (140-415); RED BLOOD COUNT 2.46 10^6/ul (4.20-5.40); RED CELL DISTRIBUTION WIDTH 14.2 % (11.5-14.5)
[2017-08-29 08:11] LABS: WHITE BLOOD COUNT 1.7 10^3/ul (4.8-10.8)
[2017-08-29 08:14] LABS: ADD MAN DIFF? YES; POSITIVE DIFF @See below
[2017-08-29 08:54] LABS: ANION GAP 8 (8-16); BLOOD UREA NITROGEN 11 mg/dl (7-20); CALCIUM 7.9 mg/dl (8.4-10.2); CARBON DIOXIDE 27 mmol/L (21-31); CHLORIDE 107 mmol/L (97-110); CREATININE 1.43 mg/dl (0.44-1.00); GLUCOSE 85 mg/dl (70-220); POTASSIUM 3.6 mmol/L (3.5-5.1); SODIUM 138 mmol/L (135-144)
[2017-08-29] MEDS: CHOLECALCIFEROL 1,000 UNIT TAB PO (09:23)
[2017-08-29] MEDS: NA BICARBONATE 650 MG TAB PO ×2 (09:23→20:24)
[2017-08-29] MEDS: PANTOPRAZOLE (EC) 40 MG TAB PO (09:23)
[2017-08-29] MEDS: CYANOCOBALAMIN 500 MCG TAB PO (09:23)
[2017-08-29] MEDS: ASPIRIN (EC) 81 MG TAB PO (09:23)
[2017-08-29] MEDS: APIXABAN 5 MG TABLET PO ×2 (09:23→20:23)
[2017-08-29] MEDS: FEBUXOSTAT 40 MG TABLET PO (09:24)
[2017-08-29] MEDS: SOD CHLORIDE 0.9% 1,000 ML IV (09:32)
[2017-08-29 09:33] LABS: ANISOCYTOSIS 1+ (0-0); BURR CELLS 2+ (0-0); EOSINOPHILS % (M) 2 % (0-7); ERYTHROBLAST% (NRBC) (M) 1 % (0-0); GIANT THROMBO% (M) 2 % (0-0); LYMPHOCYTES #M 1.1 10^3/ul (0.8-2.9); LYMPHOCYTES % (M) 65 % (15-51); MICROCYTOSIS 1+ (0-0); PLATELET ESTIMATE SIG DECREASED; POIKILOCYTOSIS 2+ (0-0); POLYCHROMASIA 2+ (0-0); SEGMENTED NEUTROPHILS (M) % 33 % (39-77); SMUDGE%M 12 % (0-0)
[2017-08-29] MEDS: METOPROLOL 25 MG TAB PO ×2 (09:57→20:33)
[2017-08-29] MEDS ORDERED: ASCORBIC ACID 500 MG TAB.CHEW PO (16:00)
[2017-08-29] MEDS: ZINC SULFATE 220 MG CAP PO (16:41)
[2017-08-29] MEDS: MULTIVITAMINS THERAPEUTIC TAB PO (16:42)
[2017-08-29] MEDS: ASCORBIC ACID 500 MG TAB PO ×2 (16:42→20:23)
[2017-08-29] MEDS ORDERED: APIXABAN 5 MG TABLET (19:41)
[2017-08-30] MEDS: SOD CHLORIDE 0.9% 1,000 ML IV (00:58)
[2017-08-30] MEDS: FUROSEMIDE 20 MG TAB PO (05:40)
[2017-08-30 05:51] LABS: WHITE BLOOD COUNT 3.1 10^3/ul (4.8-10.8)
[2017-08-30 05:51] LABS: ABNORMAL IP MESSAGE 1; ADD MAN DIFF? NO; HEMATOCRIT 21.9 % (37.0-47.0); HEMOGLOBIN 7.4 g/dl (12.0-16.0); LYMPHOCYTES # 1.4 10^3/ul (0.8-2.9); MEAN CORPUSCULAR HGB CONC 33.8 g/dl (32.0-37.0); MEAN CORPUSCULAR VOLUME 91.6 fl (82.0-101.0); MEAN PLATELET VOLUME 10.4 fl (7.4-10.4); MONOCYTE # 0.1 10^3/ul (0.3-0.9); MONOCYTES % 4.5 % (0.0-11.0); NEUTROPHIL # 1.5 10^3/ul (1.6-7.5); NEUTROPHILS % 49.2 % (39.0-77.0); NUCLEATED RED BLOOD CELLS% 0.6 /100WBC (0.0-0.0); PLATELET COUNT 52 10^3/UL (140-415); RED BLOOD COUNT 2.39 10^6/ul (4.20-5.40); RED CELL DISTRIBUTION WIDTH 13.7 % (11.5-14.5)
[2017-08-30 06:08] LABS: POSITIVE DIFF @See below
[2017-08-30 06:31] LABS: ANION GAP 6 (8-16); BLOOD UREA NITROGEN 12 mg/dl (7-20); CALCIUM 7.8 mg/dl (8.4-10.2); CARBON DIOXIDE 27 mmol/L (21-31); CHLORIDE 109 mmol/L (97-110); CREATININE 1.38 mg/dl (0.44-1.00); GLUCOSE 92 mg/dl (70-220); POTASSIUM 3.8 mmol/L (3.5-5.1); SODIUM 138 mmol/L (135-144)
[2017-08-30] MEDS: ASPIRIN (EC) 81 MG TAB PO (08:53)
[2017-08-30] MEDS: PANTOPRAZOLE (EC) 40 MG TAB PO (08:53)
[2017-08-30] MEDS: ASCORBIC ACID 500 MG TAB PO ×2 (08:53→12:32)
[2017-08-30] MEDS: ZINC SULFATE 220 MG CAP PO (08:53)
[2017-08-30] MEDS: MULTIVITAMINS THERAPEUTIC TAB PO (08:53)
[2017-08-30] MEDS: CHOLECALCIFEROL 1,000 UNIT TAB PO (08:53)
[2017-08-30] MEDS: NA BICARBONATE 650 MG TAB PO (08:54)
[2017-08-30] MEDS: CYANOCOBALAMIN 500 MCG TAB PO (08:54)
[2017-08-30] MEDS: APIXABAN 5 MG TABLET PO (08:54)
[2017-08-30] MEDS: FEBUXOSTAT 40 MG TABLET PO (08:56)
[2017-08-30] MEDS: METOPROLOL 25 MG TAB PO (09:00)
[2017-08-30] MEDS ORDERED: HEPARIN (100 UNITS/ML) 5 ML SYG CATHETER (16:30)
[2017-08-30] MEDS: [UNRECOGNIZED DRUG - OTHER] IV (17:06)
[2017-08-30] MEDS: HEPARIN IV (17:06)
== END 2017-08-30 17:20 | disposition home or self-care (01) | DRG 299 ==
LOC: E/R 14:12 → PP2 17:58
PROVIDERS: Pediatrics
PROC: 30243N1 Transfusion of Nonautologous Red Blood Cells into Central Vein, Percutaneous Approach (ICD-10-PCS; 2017-08-27)
PROC: 0JH60WZ Insertion of Totally Implantable Vascular Access Device into Chest Subcutaneous Tissue and Fascia, Open Approach (ICD-10-PCS; principal; 2017-08-28)
PROC: 02H633Z Insertion of Infusion Device into Right Atrium, Percutaneous Approach (ICD-10-PCS; 2017-08-28)
PROC: B518ZZA Fluoroscopy of Superior Vena Cava, Guidance (ICD-10-PCS; 2017-08-28)
PROC: B543ZZA Ultrasonography of Right Jugular Veins, Guidance (ICD-10-PCS; 2017-08-28)
PROC: 30243R1 Transfusion of Nonautologous Platelets into Central Vein, Percutaneous Approach (ICD-10-PCS; 2017-08-28)
DX: I82.442 Acute embolism and thrombosis of left tibial vein (principal); D61.810 Antineoplastic chemotherapy induced pancytopenia; C25.9 Malignant neoplasm of pancreas, unspecified; C78.6 Secondary malignant neoplasm of retroperitoneum and peritoneum; N17.9 Acute kidney failure, unspecified; I12.9 Hypertensive chronic kidney disease with stage 1 through stage 4 chronic kidney disease, or unspecified chronic kidney disease; N18.9 Chronic kidney disease, unspecified; E78.5 Hyperlipidemia, unspecified; I82.623 Acute embolism and thrombosis of deep veins of upper extremity, bilateral; D64.81 Anemia due to antineoplastic chemotherapy; D63.0 Anemia in neoplastic disease; T45.1X5A Adverse effect of antineoplastic and immunosuppressive drugs, initial encounter
CPT/HCPCS: 36415; 36430; 36561; 71045; 76942; 80048; 80053; 81001; 82140; 83690; 83735; 84484; 85025; 85610; 85730; 86644; 86850; 86900; 86901; 86920; 93005; 93306; 93926; 93970; 93971; 97161; 99285-25

== ENCOUNTER 2017-09-26 15:19 | Inpatient (IN) | payer OTHER ==
[2017-09-26] MEDS: SODIUM CHLORIDE 0.9% 1L BAG IV* (16:23)
[2017-09-26] MEDS: CEFEPIME 2GM/50 ML (PMX) 50 ML IVPB (16:26)
[2017-09-26] MEDS: VANCOMYCIN 1 GM (PMX) 250 ML IVPB (16:45)
[2017-09-26 16:56] LABS: ADD MAN DIFF? NO
[2017-09-26 17:07] LABS: WHITE BLOOD COUNT 18.6 10^3/ul (4.8-10.8)
[2017-09-26 17:07] LABS: BASOPHIL # 0.1 10^3/ul (0.0-0.1); BASOPHILS % 0.4 % (0.0-2.0); EOSINOPHILS % 0.1 % (0.0-7.0); HEMATOCRIT 34.2 % (37.0-47.0); HEMOGLOBIN 11.2 g/dl (12.0-16.0); LYMPHOCYTES # 2.3 10^3/ul (0.8-2.9); LYMPHOCYTES % 12.3 % (15.0-51.0); MEAN CORPUSCULAR HEMOGLOBIN 32.7 pg (29.0-33.0); MEAN CORPUSCULAR HGB CONC 32.7 g/dl (32.0-37.0); MEAN CORPUSCULAR VOLUME 99.7 fl (82.0-101.0); MEAN PLATELET VOLUME 11.6 fl (7.4-10.4); MONOCYTE # 1.1 10^3/ul (0.3-0.9); NEUTROPHILS % 80.7 % (39.0-77.0); PLATELET COUNT 208 10^3/UL (140-415); RED BLOOD COUNT 3.43 10^6/ul (4.20-5.40); RED CELL DISTRIBUTION WIDTH 18.9 % (11.5-14.5)
[2017-09-26 17:16] LABS: ADD UMIC NO; UR ASCORBIC ACID NEGATIVE (NEGATIVE); UR BILIRUBIN (Dip) NEGATIVE (NEGATIVE); UR BLOOD (Dip) NEGATIVE (NEGATIVE); UR CLARITY CLEAR (CLEAR); UR COLOR YELLOW (YELLOW); UR GLUCOSE (Dip) NEGATIVE (NEGATIVE); UR KETONES (Dip) NEGATIVE (NEGATIVE); UR LEUKOCYTE ESTERASE (Dip) NEGATIVE Leu/ul (NEGATIVE); UR NITRITE (Dip) NEGATIVE (NEGATIVE); UR SPECIFIC GRAVITY (Dip) 1.012 (1.003-1.030); UR TOTAL PROTEIN (Dip) NEGATIVE (NEGATIVE); UR UROBILINOGEN (Dip) NEGATIVE (NEGATIVE)
[2017-09-26] MEDS: ACETAMINOPHEN 500 MG TAB PO (17:17)
[2017-09-26 17:18] LABS: ALANINE AMINOTRANSFERASE 47 IU/L (13-69); ALBUMIN 2.3 g/dl (3.3-4.9); ALBUMIN/GLOBULIN RATIO 0.69; ALKALINE PHOSPHATASE 158 IU/L (42-121); ANION GAP 23 (8-16); ASPARTATE AMINO TRANSFERASE 50 IU/L (15-46); BILIRUBIN,INDIRECT 1.1 mg/dl (0-1.1); BILIRUBIN,TOTAL 1.1 mg/dl (0.2-1.3); BLOOD UREA NITROGEN 18 mg/dl (7-20); CALCIUM 8.4 mg/dl (8.4-10.2); CARBON DIOXIDE 19 mmol/L (21-31); CHLORIDE 101 mmol/L (97-110); CREATININE 2.93 mg/dl (0.44-1.00); GLUCOSE 144 mg/dl (70-220); POTASSIUM 3.8 mmol/L (3.5-5.1); PROTIME 15.4 Sec (11.9-14.9); PT RATIO 1.2; SODIUM 139 mmol/L (135-144); TOTAL PROTEIN 5.6 g/dl (6.1-8.1)
[2017-09-26 17:19] LABS: PARTIAL THROMBOPLASTIN TIME 34.7 Sec (25.0-35.0)
[2017-09-26 17:28] LABS: TROPONIN-I 0.034 ng/ml (0.000-0.120)
[2017-09-26 17:30] LABS: LACTIC ACID 10.3 mmol/L (0.5-2.0)
[2017-09-26 20:16] LABS: LACTIC ACID 5.7 mmol/L (0.5-2.0)
[2017-09-26] MEDS: LACTATED RINGER'S 500 ML IV (20:23)
[2017-09-26] MEDS: NORepinephrine 8MG/250 ML (PMX 250 ML IV (20:50)
[2017-09-26] MEDS ORDERED: ACETAMINOPHEN 650MG/20.3ML CUP PO (21:00)
[2017-09-26] MEDS ORDERED: IPRATROPIUM (NEB) 0.5 MG/2.5 ML AMP NEB (21:00)
[2017-09-26] MEDS ORDERED: PIPER-TAZO 3.375 GM IV (PMX) 100 ML IVPB (21:00)
[2017-09-26] MEDS ORDERED: morphine 2 MG INJ IV (21:00)
[2017-09-26] MEDS ORDERED: LORAZEPAM 2 MG INJ IV (21:00)
[2017-09-26] MEDS ORDERED: LEVALBUTEROL (NEB) 0.63 MG/3 ML AMP HHN (21:00)
[2017-09-26] MEDS: DOCUSATE SODIUM 100 MG CAP PO (22:00)
[2017-09-26] MEDS: SOD CHLORIDE 0.9% 1,000 ML IV (22:11)
[2017-09-27] MEDS: APIXABAN 5 MG TABLET PO ×3 (00:23→23:09)
[2017-09-27] MEDS: NA BICARBONATE 650 MG TAB PO ×3 (00:23→23:09)
[2017-09-27] MEDS: LOSARTAN 50 MG TAB PO ×3 (00:24→21:00)
[2017-09-27] MEDS: PIPER-TAZO 2.25 GM (PMX) 50 ML IVPB ×3 (01:00→12:28)
[2017-09-27 05:50] LABS: ADD MAN DIFF? NO
[2017-09-27 05:55] LABS: WHITE BLOOD COUNT 17.9 10^3/ul (4.8-10.8)
[2017-09-27 05:55] LABS: BASOPHIL # 0.1 10^3/ul (0.0-0.1); BASOPHILS % 0.3 % (0.0-2.0); EOSINOPHILS % 0.2 % (0.0-7.0); HEMATOCRIT 26.9 % (37.0-47.0); HEMOGLOBIN 8.9 g/dl (12.0-16.0); LYMPHOCYTES # 2.3 10^3/ul (0.8-2.9); MEAN CORPUSCULAR HEMOGLOBIN 32.6 pg (29.0-33.0); MEAN CORPUSCULAR HGB CONC 33.1 g/dl (32.0-37.0); MEAN CORPUSCULAR VOLUME 98.5 fl (82.0-101.0); MEAN PLATELET VOLUME 10.8 fl (7.4-10.4); MONOCYTE # 1.3 10^3/ul (0.3-0.9); MONOCYTES % 7.2 % (0.0-11.0); NEUTROPHIL # 14.1 10^3/ul (1.6-7.5); NEUTROPHILS % 78.9 % (39.0-77.0); PLATELET COUNT 153 10^3/UL (140-415); RED BLOOD COUNT 2.73 10^6/ul (4.20-5.40); RED CELL DISTRIBUTION WIDTH 19.5 % (11.5-14.5)
[2017-09-27 06:11] LABS: ANION GAP 11 (8-16); BLOOD UREA NITROGEN 18 mg/dl (7-20); CALCIUM 7.3 mg/dl (8.4-10.2); CARBON DIOXIDE 23 mmol/L (21-31); CHLORIDE 108 mmol/L (97-110); CREATININE 2.57 mg/dl (0.44-1.00); GLUCOSE 115 mg/dl (70-220); POTASSIUM 3.5 mmol/L (3.5-5.1); SODIUM 138 mmol/L (135-144)
[2017-09-27] MEDS: PANTOPRAZOLE (EC) 40 MG TAB PO ×2 (07:20→09:10)
[2017-09-27] MEDS: SOD CHLORIDE 0.9% 1,000 ML IV ×3 (08:25→23:10)
[2017-09-27] MEDS: ASPIRIN (EC) 81 MG TAB PO (09:10)
[2017-09-27] MEDS: DOCUSATE SODIUM 100 MG CAP PO ×2 (09:10→21:00)
[2017-09-27] MEDS: FEBUXOSTAT 40 MG TABLET PO (09:10)
[2017-09-27] MEDS: ASCORBIC ACID 500 MG TAB PO (09:11)
[2017-09-27] MEDS: MULTIVITAMINS THERAPEUTIC TAB PO (09:11)
[2017-09-27 19:25] LABS: LACTIC ACID 5.9 mmol/L (0.5-2.0)
[2017-09-27] MEDS ORDERED: MEROPENEM 500MG/50 ML (PMX) 50 ML IVPB (22:00)
[2017-09-27 22:42] LABS: LACTIC ACID 3.5 mmol/L (0.5-2.0)
[2017-09-27] MEDS: MEROPENEM 500MG/50 ML (PMX) 50 ML IVPB (23:09)
[2017-09-28] MEDS: NORepinephrine 8MG/250 ML (PMX 250 ML IV (01:19)
[2017-09-28 05:18] LABS: ADD MAN DIFF? NO
[2017-09-28 05:22] LABS: WHITE BLOOD COUNT 8.7 10^3/ul (4.8-10.8)
[2017-09-28 05:22] LABS: BASOPHIL # 0.1 10^3/ul (0.0-0.1); BASOPHILS % 0.8 % (0.0-2.0); EOSINOPHILS # 0.3 10^3/ul (0.0-0.5); EOSINOPHILS % 2.9 % (0.0-7.0); HEMATOCRIT 28.4 % (37.0-47.0); HEMOGLOBIN 9.5 g/dl (12.0-16.0); LYMPHOCYTES # 2.2 10^3/ul (0.8-2.9); LYMPHOCYTES % 25.4 % (15.0-51.0); MEAN CORPUSCULAR HEMOGLOBIN 32.8 pg (29.0-33.0); MEAN CORPUSCULAR HGB CONC 33.5 g/dl (32.0-37.0); MEAN CORPUSCULAR VOLUME 97.9 fl (82.0-101.0); MEAN PLATELET VOLUME 10.8 fl (7.4-10.4); MONOCYTE # 0.5 10^3/ul (0.3-0.9); MONOCYTES % 6.1 % (0.0-11.0); NEUTROPHIL # 5.6 10^3/ul (1.6-7.5); NEUTROPHILS % 64.3 % (39.0-77.0); PLATELET COUNT 162 10^3/UL (140-415); RED CELL DISTRIBUTION WIDTH 19.6 % (11.5-14.5)
[2017-09-28 05:40] LABS: LACTIC ACID 2.4 mmol/L (0.5-2.0)
[2017-09-28 05:45] LABS: PHOSPHORUS 2.9 mg/dl (2.5-4.9)
[2017-09-28 05:45] LABS: MAGNESIUM 1.5 mg/dl (1.7-2.5)
[2017-09-28 05:48] LABS: ANION GAP 14 (8-16); BLOOD UREA NITROGEN 18 mg/dl (7-20); CALCIUM 8.2 mg/dl (8.4-10.2); CARBON DIOXIDE 23 mmol/L (21-31); CHLORIDE 109 mmol/L (97-110); CREATININE 2.39 mg/dl (0.44-1.00); GLUCOSE 74 mg/dl (70-220); POTASSIUM 3.6 mmol/L (3.5-5.1); SODIUM 142 mmol/L (135-144)
[2017-09-28] MEDS: PANTOPRAZOLE (EC) 40 MG TAB PO (07:46)
[2017-09-28] MEDS: ONDANSETRON 4 MG INJ IV (07:46)
[2017-09-28] MEDS: MEROPENEM 500MG/50 ML (PMX) 50 ML IVPB ×2 (08:38→21:00)
[2017-09-28] MEDS: NA BICARBONATE 650 MG TAB PO ×2 (08:38→20:59)
[2017-09-28] MEDS: FEBUXOSTAT 40 MG TABLET PO (08:38)
[2017-09-28] MEDS: ASCORBIC ACID 500 MG TAB PO (08:38)
[2017-09-28] MEDS: APIXABAN 5 MG TABLET PO ×2 (08:39→20:59)
[2017-09-28] MEDS: ASPIRIN (EC) 81 MG TAB PO (08:39)
[2017-09-28] MEDS: MULTIVITAMINS THERAPEUTIC TAB PO (08:40)
[2017-09-28] MEDS: DOCUSATE SODIUM 100 MG CAP PO ×2 (08:42→21:00)
[2017-09-28] MEDS: LOSARTAN 50 MG TAB PO ×2 (08:43→21:00)
[2017-09-28] MEDS: MAGNESIUM SULFATE 2 GM/50 ML 50 ML IVPB ×2 (11:37→13:57)
[2017-09-28] MEDS: SOD CHLORIDE 0.9% 1,000 ML IV ×2 (11:37→17:55)
[2017-09-28] MEDS ORDERED: PENDING SANTYL ORDER FOR WOUND CARE XX (12:30)
[2017-09-28] MEDS ORDERED: COLLAGENASE 5 GM (UD JAR) TOP (12:30)
[2017-09-28 12:45] LABS: LACTIC ACID 2.6 mmol/L (0.5-2.0)
[2017-09-28] MEDS: COLLAGENASE 5 GM (UD JAR) TOP (14:21)
[2017-09-28] MEDS ORDERED: morphine LIQ (10 MG/5 ML) CUP PO (17:30)
[2017-09-28] MEDS ORDERED: HEPARIN 5,000 UNIT/0.5 ML VIAL SC (21:00)
[2017-09-29 00:09] LABS: IRON 45 ug/dl (35-150)
[2017-09-29 00:19] LABS: % IRON SATURATION 44 % SAT (22-52); TOTAL IRON BINDING CAPACITY 102 ug/dl (241-421)
[2017-09-29] MEDS: SOD CHLORIDE 0.9% 1,000 ML IV ×3 (06:27→18:07)
[2017-09-29 06:54] LABS: ADD MAN DIFF? NO
[2017-09-29 07:04] LABS: WHITE BLOOD COUNT 3.6 10^3/ul (4.8-10.8)
[2017-09-29 07:04] LABS: BASOPHILS % 0.6 % (0.0-2.0); EOSINOPHILS # 0.2 10^3/ul (0.0-0.5); EOSINOPHILS % 5.1 % (0.0-7.0); HEMATOCRIT 23.1 % (37.0-47.0); HEMOGLOBIN 7.6 g/dl (12.0-16.0); LYMPHOCYTES % 29.2 % (15.0-51.0); MEAN CORPUSCULAR HEMOGLOBIN 33.2 pg (29.0-33.0); MEAN CORPUSCULAR HGB CONC 32.9 g/dl (32.0-37.0); MEAN CORPUSCULAR VOLUME 100.9 fl (82.0-101.0); MEAN PLATELET VOLUME 10.7 fl (7.4-10.4); MONOCYTE # 0.3 10^3/ul (0.3-0.9); MONOCYTES % 9.3 % (0.0-11.0); NEUTROPHILS % 55.5 % (39.0-77.0); PLATELET COUNT 131 10^3/UL (140-415); RED BLOOD COUNT 2.29 10^6/ul (4.20-5.40); RED CELL DISTRIBUTION WIDTH 19.8 % (11.5-14.5)
[2017-09-29 07:35] LABS: ANION GAP 6 (8-16); BLOOD UREA NITROGEN 15 mg/dl (7-20); CALCIUM 7.5 mg/dl (8.4-10.2); CARBON DIOXIDE 24 mmol/L (21-31); CHLORIDE 115 mmol/L (97-110); CREATININE 2.09 mg/dl (0.44-1.00); GLUCOSE 75 mg/dl (70-220); POTASSIUM 3.7 mmol/L (3.5-5.1); SODIUM 141 mmol/L (135-144)
[2017-09-29 07:39] LABS: PHOSPHORUS 2.7 mg/dl (2.5-4.9)
[2017-09-29 07:39] LABS: MAGNESIUM 2.3 mg/dl (1.7-2.5)
[2017-09-29] MEDS: DOCUSATE SODIUM 100 MG CAP PO ×2 (09:00→21:00)
[2017-09-29] MEDS: LOSARTAN 50 MG TAB PO (09:00)
[2017-09-29] MEDS: PANTOPRAZOLE (EC) 40 MG TAB PO (09:18)
[2017-09-29] MEDS: ASCORBIC ACID 500 MG TAB PO (09:18)
[2017-09-29] MEDS: MEROPENEM 500MG/50 ML (PMX) 50 ML IVPB ×2 (09:18→22:50)
[2017-09-29] MEDS: FEBUXOSTAT 40 MG TABLET PO (09:18)
[2017-09-29] MEDS: APIXABAN 5 MG TABLET PO ×2 (09:19→22:50)
[2017-09-29] MEDS: MULTIVITAMINS THERAPEUTIC TAB PO (09:19)
[2017-09-29] MEDS: ASPIRIN (EC) 81 MG TAB PO (09:19)
[2017-09-29] MEDS: NA BICARBONATE 650 MG TAB PO (09:19)
[2017-09-29] MEDS: COLLAGENASE 5 GM (UD JAR) TOP (09:20)
[2017-09-29 16:52] LABS: IMMEDIATE SPIN CROSSMATCH 1 2
[2017-09-29] MEDS ORDERED: ALBUMIN HUMAN 25% 50 ML IV (20:00)
[2017-09-29 20:52] LABS: ADD UMIC YES; UR AMORPHOUS CRYSTAL FEW /HPF (NONE SEEN); UR ASCORBIC ACID 40 mg/dL (NEGATIVE); UR BILIRUBIN (Dip) NEGATIVE (NEGATIVE); UR BLOOD (Dip) NEGATIVE (NEGATIVE); UR CALCIUM OXALATE CRYSTAL MODERATE /HPF (NONE SEEN); UR CLARITY CLOUDY (CLEAR); UR COLOR AMBER (YELLOW); UR GLUCOSE (Dip) NEGATIVE (NEGATIVE); UR KETONES (Dip) NEGATIVE (NEGATIVE); UR LEUKOCYTE ESTERASE (Dip) NEGATIVE Leu/ul (NEGATIVE); UR NITRITE (Dip) NEGATIVE (NEGATIVE); UR NONSQUAMOUS EPITHELIAL CELL 2 /HPF (NONE SEEN); UR RBC 1 /HPF (0-5); UR SPECIFIC GRAVITY (Dip) 1.015 (1.003-1.030); UR SQUAMOUS EPITHELIAL CELL FEW /HPF (FEW); UR TOTAL PROTEIN (Dip) NEGATIVE (NEGATIVE); UR UROBILINOGEN (Dip) NEGATIVE (NEGATIVE); UR WBC 9 /HPF (0-5)
[2017-09-29 21:08] LABS: CREATININE,URINE RANDOM 118.78 mg/dl (20-320)
[2017-09-29 21:09] LABS: SODIUM,URINE RANDOM 114 mmol/L (30-90)
[2017-09-30] MEDS: PANTOPRAZOLE (EC) 40 MG TAB PO (05:51)
[2017-09-30 06:25] LABS: ADD MAN DIFF? NO
[2017-09-30 06:29] LABS: BASOPHILS % 1.1 % (0.0-2.0); EOSINOPHILS # 0.2 10^3/ul (0.0-0.5); EOSINOPHILS % 5.4 % (0.0-7.0); HEMATOCRIT 30.7 % (37.0-47.0); HEMOGLOBIN 10.3 g/dl (12.0-16.0); LYMPHOCYTES # 1.1 10^3/ul (0.8-2.9); LYMPHOCYTES % 30.7 % (15.0-51.0); MEAN CORPUSCULAR HEMOGLOBIN 31.9 pg (29.0-33.0); MEAN CORPUSCULAR HGB CONC 33.6 g/dl (32.0-37.0); MEAN PLATELET VOLUME 9.9 fl (7.4-10.4); MONOCYTE # 0.3 10^3/ul (0.3-0.9); MONOCYTES % 8.3 % (0.0-11.0); NEUTROPHIL # 1.9 10^3/ul (1.6-7.5); NEUTROPHILS % 53.9 % (39.0-77.0); PLATELET COUNT 136 10^3/UL (140-415); RED BLOOD COUNT 3.23 10^6/ul (4.20-5.40); RED CELL DISTRIBUTION WIDTH 19.9 % (11.5-14.5)
[2017-09-30 06:29] LABS: WHITE BLOOD COUNT 3.5 10^3/ul (4.8-10.8)
[2017-09-30 07:14] LABS: ANION GAP 8 (8-16); BLOOD UREA NITROGEN 14 mg/dl (7-20); CALCIUM 7.7 mg/dl (8.4-10.2); CARBON DIOXIDE 23 mmol/L (21-31); CHLORIDE 115 mmol/L (97-110); CREATININE 1.81 mg/dl (0.44-1.00); GLUCOSE 76 mg/dl (70-220); POTASSIUM 3.9 mmol/L (3.5-5.1); SODIUM 142 mmol/L (135-144)
[2017-09-30 07:52] LABS: LACTIC ACID 1.7 mmol/L (0.5-2.0)
[2017-09-30 08:26] LABS: PHOSPHORUS 2.9 mg/dl (2.5-4.9)
[2017-09-30] MEDS: MEROPENEM 500MG/50 ML (PMX) 50 ML IVPB ×2 (08:31→20:42)
[2017-09-30] MEDS: ASPIRIN (EC) 81 MG TAB PO (08:31)
[2017-09-30] MEDS: COLLAGENASE 5 GM (UD JAR) TOP (08:31)
[2017-09-30] MEDS: FEBUXOSTAT 40 MG TABLET PO (08:31)
[2017-09-30] MEDS: APIXABAN 5 MG TABLET PO ×2 (08:31→20:42)
[2017-09-30] MEDS: ASCORBIC ACID 500 MG TAB PO (08:31)
[2017-09-30] MEDS: MULTIVITAMINS THERAPEUTIC TAB PO (08:32)
[2017-09-30] MEDS: DOCUSATE SODIUM 100 MG CAP PO ×3 (08:32→20:42)
[2017-10-01] MEDS: PANTOPRAZOLE (EC) 40 MG TAB PO (05:32)
[2017-10-01 07:44] LABS: ADD MAN DIFF? NO
[2017-10-01 07:52] LABS: EOSINOPHILS # 0.2 10^3/ul (0.0-0.5); HEMATOCRIT 34.5 % (37.0-47.0); HEMOGLOBIN 11.5 g/dl (12.0-16.0); LYMPHOCYTES # 1.5 10^3/ul (0.8-2.9); LYMPHOCYTES % 35.2 % (15.0-51.0); MEAN CORPUSCULAR HEMOGLOBIN 32.2 pg (29.0-33.0); MEAN CORPUSCULAR HGB CONC 33.3 g/dl (32.0-37.0); MEAN CORPUSCULAR VOLUME 96.6 fl (82.0-101.0); MEAN PLATELET VOLUME 10.3 fl (7.4-10.4); MONOCYTE # 0.5 10^3/ul (0.3-0.9); MONOCYTES % 12.1 % (0.0-11.0); NEUTROPHILS % 47.2 % (39.0-77.0); PLATELET COUNT 153 10^3/UL (140-415); RED BLOOD COUNT 3.57 10^6/ul (4.20-5.40)
[2017-10-01 07:52] LABS: WHITE BLOOD COUNT 4.2 10^3/ul (4.8-10.8)
[2017-10-01] MEDS: MEROPENEM 500MG/50 ML (PMX) 50 ML IVPB (08:32)
[2017-10-01 08:33] LABS: ANION GAP 9 (8-16); BLOOD UREA NITROGEN 12 mg/dl (7-20); CALCIUM 7.9 mg/dl (8.4-10.2); CARBON DIOXIDE 22 mmol/L (21-31); CHLORIDE 114 mmol/L (97-110); CREATININE 1.67 mg/dl (0.44-1.00); GLUCOSE 82 mg/dl (70-220); POTASSIUM 3.8 mmol/L (3.5-5.1); SODIUM 141 mmol/L (135-144)
[2017-10-01] MEDS: COLLAGENASE 5 GM (UD JAR) TOP (08:33)
[2017-10-01] MEDS: DOCUSATE SODIUM 100 MG CAP PO ×2 (08:33→21:00)
[2017-10-01] MEDS: ASPIRIN (EC) 81 MG TAB PO (08:33)
[2017-10-01] MEDS: ASCORBIC ACID 500 MG TAB PO (08:33)
[2017-10-01] MEDS: APIXABAN 5 MG TABLET PO ×2 (08:33→21:45)
[2017-10-01] MEDS: FEBUXOSTAT 40 MG TABLET PO (08:33)
[2017-10-01] MEDS: MULTIVITAMINS THERAPEUTIC TAB PO (08:33)
[2017-10-01] MEDS: MEROPENEM 1 GM/50ML(PMX) 50 ML IVPB (21:45)
[2017-10-02] MEDS: DOCUSATE SODIUM 100 MG CAP PO (09:00)
[2017-10-02 09:03] LABS: ADD MAN DIFF? NO
[2017-10-02 09:14] LABS: WHITE BLOOD COUNT 5.8 10^3/ul (4.8-10.8)
[2017-10-02 09:14] LABS: BASOPHIL # 0.1 10^3/ul (0.0-0.1); BASOPHILS % 1.2 % (0.0-2.0); EOSINOPHILS # 0.2 10^3/ul (0.0-0.5); EOSINOPHILS % 3.7 % (0.0-7.0); HEMATOCRIT 36.7 % (37.0-47.0); HEMOGLOBIN 12.2 g/dl (12.0-16.0); LYMPHOCYTES # 2.2 10^3/ul (0.8-2.9); LYMPHOCYTES % 37.9 % (15.0-51.0); MEAN CORPUSCULAR HEMOGLOBIN 32.3 pg (29.0-33.0); MEAN CORPUSCULAR HGB CONC 33.2 g/dl (32.0-37.0); MEAN CORPUSCULAR VOLUME 97.1 fl (82.0-101.0); MEAN PLATELET VOLUME 10.3 fl (7.4-10.4); MONOCYTE # 0.6 10^3/ul (0.3-0.9); MONOCYTES % 9.9 % (0.0-11.0); NEUTROPHIL # 2.7 10^3/ul (1.6-7.5); PLATELET COUNT 186 10^3/UL (140-415); RED BLOOD COUNT 3.78 10^6/ul (4.20-5.40); RED CELL DISTRIBUTION WIDTH 19.9 % (11.5-14.5)
[2017-10-02 09:33] LABS: ANION GAP 10 (8-16); BLOOD UREA NITROGEN 11 mg/dl (7-20); CALCIUM 8.3 mg/dl (8.4-10.2); CARBON DIOXIDE 22 mmol/L (21-31); CHLORIDE 113 mmol/L (97-110); CREATININE 1.49 mg/dl (0.44-1.00); GLUCOSE 76 mg/dl (70-220); POTASSIUM 4.3 mmol/L (3.5-5.1); SODIUM 141 mmol/L (135-144)
[2017-10-02] MEDS: MULTIVITAMINS THERAPEUTIC TAB PO (09:37)
[2017-10-02] MEDS: ASCORBIC ACID 500 MG TAB PO (09:37)
[2017-10-02] MEDS: FEBUXOSTAT 40 MG TABLET PO (09:37)
[2017-10-02] MEDS: MEROPENEM 1 GM/50ML(PMX) 50 ML IVPB (09:37)
[2017-10-02] MEDS: ASPIRIN (EC) 81 MG TAB PO (09:37)
[2017-10-02] MEDS: PANTOPRAZOLE (EC) 40 MG TAB PO (09:39)
[2017-10-02] MEDS: COLLAGENASE 5 GM (UD JAR) TOP (10:04)
[2017-10-02] MEDS: APIXABAN 5 MG TABLET PO (11:38)
[2017-10-02 19:57] LABS: PTH CALCIUM 7.5 mg/dL (8.6-10.4)
[2017-10-02 20:36] LABS: ERYTHROPOIETIN 29.3 mIU/mL (2.6-18.5)
[2017-10-03 08:57] LABS: PTH INTACT 57 pg/mL (14-64)
== END 2017-10-02 16:14 | disposition home or self-care (01) | DRG 871 ==
LOC: E/R 15:19 → ICU 09-27 20:49 → MS4 09-28 16:48
PROC: 30233N1 Transfusion of Nonautologous Red Blood Cells into Peripheral Vein, Percutaneous Approach (ICD-10-PCS; principal; 2017-09-29)
DX: A41.9 Sepsis, unspecified organism (principal); R65.21 Severe sepsis with septic shock; D61.810 Antineoplastic chemotherapy induced pancytopenia; L03.115 Cellulitis of right lower limb; L97.819 Non-pressure chronic ulcer of other part of right lower leg with unspecified severity; N17.9 Acute kidney failure, unspecified; C25.3 Malignant neoplasm of pancreatic duct; E87.2 Acidosis; I82.402 Acute embolism and thrombosis of unspecified deep veins of left lower extremity; I82.623 Acute embolism and thrombosis of deep veins of upper extremity, bilateral; D68.59 Other primary thrombophilia; C77.2 Secondary and unspecified malignant neoplasm of intra-abdominal lymph nodes; M25.471 Effusion, right ankle; I12.9 Hypertensive chronic kidney disease with stage 1 through stage 4 chronic kidney disease, or unspecified chronic kidney disease; D63.0 Anemia in neoplastic disease; E78.5 Hyperlipidemia, unspecified; N18.3 Chronic kidney disease, stage 3 (moderate); D64.81 Anemia due to antineoplastic chemotherapy; Z79.01 Long term (current) use of anticoagulants; Z79.82 Long term (current) use of aspirin; T45.1X5A Adverse effect of antineoplastic and immunosuppressive drugs, initial encounter
CPT/HCPCS: 36415; 36430; 71045; 73590; 73600; 80048; 80053; 81001; 81003; 82306; 82668; 82728; 83036; 83540; 83605; 83735; 83970; 84100; 84155; 84300; 84484; 85025; 85610; 85730; 86850; 86900; 86901; 86920; 87040; 87070; 87081; 87086; 89190; 93005; 96365; 96366; 96367; 96375; 96376; 97162; 99291-25